=== PATIENT | male | born 1990 | race African-American/Black ===

== ENCOUNTER 2019-06-18 17:16 | Emergency (ER) | payer MEDICAID, OTHER ==
[~2019-06-18] VITALS: Ht 172.7 cm; Wt 72.6 kg
[2019-06-19 01:03] VITALS: BP 126/69
[2019-06-19] MEDS ORDERED: KETOROLAC TROMETH 60MG/2ML VIAL IM ONE (01:30)
== END 2019-06-19 01:45 | disposition home or self-care (01) ==
LOC: ER 17:16
DX: R07.9 Chest pain, unspecified (principal); M54.9 Dorsalgia, unspecified; R11.10 Vomiting, unspecified
CPT/HCPCS: 71046; 93005; 96372; 99283; J1885